=== PATIENT | male | born 1985 | race American Indian/Alaskan Native ===

== ENCOUNTER 2018-02-08 16:32 | Inpatient (IN) | payer SELFPAY ==
[2018-02-08] MEDS ORDERED: ZOFRAN IV ONE (17:36)
[2018-02-08] MEDS ORDERED: SUBLIMAZE IV ONE ×2 (17:36→19:21)
[2018-02-08] MEDS ORDERED: BOOSTRIX IM ONE (17:38)
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
[2018-02-08 18:52] LABS: Basophils # (Auto) 0.1 K/mm3 (0.0-0.1); Basophils % (Auto) 0.5 % (0.0-1.8); Eosinophils # (Auto) 0.1 K/mm3 (0.0-0.4); Eosinophils % (Auto) 1.3 % (0.0-4.3); Hematocrit 40.5 % (35.5-45.6); Lymphocytes # (Auto) 1.5 K/mm3 (1.2-5.4); Lymphocytes % (Auto) 13.6 % (13.4-35.0); Mean Corpuscular HGB Conc 32 % (32-34); Mean Corpuscular Hemoglobin 26 pg (28-32); Mean Corpuscular Volume 82 fl (84-94); Monocytes # (Auto) 0.7 K/mm3 (0.0-0.8); Monocytes % (Auto) 6.5 % (0.0-7.3); Platelet Count 282 K/mm3 (140-440); Red Blood Count 4.96 M/mm3 (3.65-5.03); Red Cell Distribution Width 15.1 % (13.2-15.2)
[2018-02-08 19:00] LABS: Creatine Kinase MB 2.2 ng/mL (0.0-4.0)
[2018-02-08 19:23] LABS: Alanine Aminotransferase 27 units/L (7-56); Albumin 4.1 g/dL (3.9-5); BUN/Creatinine Ratio 15; Blood Urea Nitrogen 12 mg/dL (9-20); Hemolysis Index 3
[2018-02-08] MEDS ORDERED: PERCOCET 5/325 PO ONE (20:40)
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
[2018-02-08 21:35] LABS: Creatine Kinase MB 2.9 ng/mL (0.0-4.0)
[2018-02-08] MEDS ORDERED: NACL 0.9% 500 ML IR ONE (21:50)
[2018-02-08] MEDS ORDERED: HYDROGEN PEROXIDE ONE (21:50)
[2018-02-08] MEDS ORDERED: XYLOCAINE 1% 20 mL ONE (21:50)
[2018-02-08] MEDS ORDERED: XYLOCAINE 1% 20 mL INFILTRATI ONE (22:17)
[2018-02-08] MEDS ORDERED: NACL 0.9% IR ONE (22:17)
[2018-02-08] MEDS ORDERED: HYDROGEN PEROXIDE TP ONE (22:17)
[2018-02-08] MEDS ORDERED: POLYSPORIN TP ONE (22:19)
[2018-02-08] MEDS ORDERED: TYLENOL PO PRN (22:25)
[2018-02-08] MEDS ORDERED: SODIUM CHLORIDE FLUSH SYRINGE 10 ML IV PRN (22:25)
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
[2018-02-08] MEDS: MOTRIN PO SCH (22:54)
[2018-02-08] MEDS ORDERED: MORPHINE ONE (23:16)
[2018-02-08] MEDS ORDERED: ZOFRAN ONE (23:16)
[2018-02-08] MEDS: MORPHINE IV PRN (23:20)
[2018-02-08] MEDS: ZOFRAN IV PRN (23:21)
[2018-02-08 23:28] LABS: Creatine Kinase MB 3.1 ng/mL (0.0-4.0)
[2018-02-09] MEDS: MOTRIN PO SCH ×2 (06:25→21:21)
[2018-02-09] MEDS: MORPHINE IV PRN ×3 (06:30→20:29)
[2018-02-09] MEDS: ZOFRAN IV PRN (06:30)
[2018-02-09 08:29] LABS: Basophils % (Auto) 0.3 % (0.0-1.8); Eosinophils % (Auto) 0.1 % (0.0-4.3); Hematocrit 40.1 % (35.5-45.6); Hemoglobin 12.7 gm/dl (11.8-15.2); Lymphocytes # (Auto) 0.9 K/mm3 (1.2-5.4); Lymphocytes % (Auto) 11.4 % (13.4-35.0); Mean Corpuscular HGB Conc 32 % (32-34); Mean Corpuscular Hemoglobin 26 pg (28-32); Mean Corpuscular Volume 82 fl (84-94); Monocytes # (Auto) 0.5 K/mm3 (0.0-0.8); Monocytes % (Auto) 6.2 % (0.0-7.3); Platelet Count 281 K/mm3 (140-440); Red Blood Count 4.86 M/mm3 (3.65-5.03); Red Cell Distribution Width 15.1 % (13.2-15.2)
[2018-02-09 08:35] LABS: BUN/Creatinine Ratio 17; Blood Urea Nitrogen 10 mg/dL (9-20); Calcium 8.8 mg/dL (8.4-10.2); Creatine Kinase MB 2.7 ng/mL (0.0-4.0); Hemolysis Index 11
[2018-02-09] MEDS ORDERED: MOTRIN PO SCH ×2 (08:36→22:00)
[2018-02-09] MEDS ORDERED: MOTRIN PO NR (08:45)
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
[2018-02-09] MEDS: SODIUM CHLORIDE FLUSH SYRINGE 10 ML IV SCH ×2 (09:30→21:22)
[2018-02-09] MEDS: LOVENOX SUB-Q SCH (09:30)
[2018-02-09] MEDS ORDERED: LOVENOX SUB-Q SCH (10:00)
--- NOTE | 2018-02-09 10:14 | XRay Report ---
AP CHEST: HISTORY: chest pain AP view of the chest demonstrates a normal mediastinal and cardiac contour with clear lungs and normal bony and soft tissue structures. IMPRESSION: Unremarkable AP chest.
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
[2018-02-10] MEDS: SODIUM CHLORIDE FLUSH SYRINGE 10 ML IV SCH (10:51)
[2018-02-10] MEDS: MOTRIN PO SCH (10:51)
[2018-02-10] MEDS: LOVENOX SUB-Q SCH (10:51)
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
[2018-02-10 12:56] VITALS: BP 123/77
== END 2018-02-10 15:45 | disposition home or self-care (01) | DRG 316 ==
LOC: ED 16:32 → 4A 22:21
PROVIDERS: ADMIT Internal Medicine; ATTEND Internal Medicine
PROC: 3E0234Z Introduction of Serum, Toxoid and Vaccine into Muscle, Percutaneous Approach (ICD-10-PCS; principal; 2018-02-08)
PROC: 0HQ0XZZ Repair Scalp Skin, External Approach (ICD-10-PCS; 2018-02-08)
DX: I31.9 Disease of pericardium, unspecified (principal); S16.1XXA Strain of muscle, fascia and tendon at neck level, initial encounter; R59.1 Generalized enlarged lymph nodes; S01.01XA Laceration without foreign body of scalp, initial encounter; K59.00 Constipation, unspecified; Z23 Encounter for immunization; Y93.89 Activity, other specified; Y92.89 Other specified places as the place of occurrence of the external cause; Y99.8 Other external cause status; Z82.49 Family history of ischemic heart disease and other diseases of the circulatory system; Z79.899 Other long term (current) drug therapy; V49.9XXA Car occupant (driver) (passenger) injured in unspecified traffic accident, initial encounter
CPT/HCPCS: 36415; 70450; 71045; 71275; 72125; 74177; 80048; 80053; 82550; 82553; 84484; 85025; 86850; 86900; 86901; 90715; 93005; 93010; 93306; 96374; 99285; J1650; J2270; J2405; J3010; Q9967

== ENCOUNTER 2018-02-19 14:07 | Emergency (ER) | payer BC ==
[2018-02-19 14:44] VITALS: BP 142/87
[2018-02-19] MEDS ORDERED: MOTRIN PO ONE (16:10)
[2018-02-19] MEDS ORDERED: TRIPLE ANTIBIOTIC TP ONE (16:10)
--- NOTE | 2018-02-19 16:16 | Emergency Department Report ---
Suture/Staple Removal - [facility] Chief Complaint: Laceration/Recheck/Suture Stated Complaint: REMOVE JAZMÍN Time Seen by Provider: 02/19/18 16:03 When Sutures or Jazmín Placed: 8-10 Days Ago Wound Location: 4 jazmín to top of head and left temporal region ED Review of Systems ROS: Stated complaint: REMOVE JAZMÍN Other details as noted in HPI Constitutional: denies: chills, fever Eyes: denies: eye pain, eye discharge, vision change ENT: as per HPI (jazmín placed on head 10 days ago). denies: ear pain, throat pain Respiratory: denies: cough, shortness of breath, wheezing Cardiovascular: denies: chest pain, palpitations Endocrine: no symptoms reported Gastrointestinal: denies: abdominal pain, nausea, diarrhea Genitourinary: denies: urgency, dysuria Musculoskeletal: denies: back pain, joint swelling, arthralgia Skin: denies: rash, lesions Neurological: denies: headache, weakness, paresthesias Psychiatric: denies: anxiety, depression Hematological/Lymphatic: denies: easy bleeding, easy bruising ED Past Medical Hx - Past Medical History Hx Congestive Heart Failure: No Hx Diabetes: No Hx Asthma: No Hx COPD: No Hx HIV: No - Social History Smoking Status: Never Smoker Substance Use Type: None - Medications Home Medications: Home Medications Medication Instructions Recorded Confirmed Last Taken Type Colchicine 0.6 mg PO DAILY #30 capsule 02/10/18 Unknown Rx Naproxen [Naprosyn TAB] 500 mg PO BID #14 tablet 02/10/18 Unknown Rx Bacitracin Zinc Oint [Antibiotic 1 applicatio TP BID #1 tube 02/19/18 Unknown Rx Oint] Ibuprofen [Motrin] 600 mg PO Q8H PRN #20 tablet 02/19/18 Unknown Rx Suture Removal Exam - Exam General: Vital signs noted. No distress. Alert and acting appropriately. Wound: No Pathologic Erythema (no signs of infection and wound dehiscence or erythema. No purulent drainage from the wound sites), No Tenderness, No Drainage, No Pus, No Wound Dehiscence Other Systems: All other systems reviewed and are unremarkable. ED Course Vital Signs 02/19/18 14:40 Temperature 98.3 F Pulse Rate 90 Respiratory 18 Rate Blood Pressure 142/87 O2 Sat by Pulse 97 Oximetry ED Recheck MDM - Differential Diagnosis Suture/Staple Removal - Medical Decision Making A/P: staple removal 1-no wound dehiscence or signs of infection 2-follow-up with primary care Critical care attestation.: If time is entered above; I have spent that time in minutes in the direct care of this critically ill patient, excluding procedure time. ED Disposition Clinical Impression: Encounter for staple removal Disposition: - TO HOME OR SELFCARE Is pt being admited?: No Does the pt Need Aspirin: No Condition: Stable Instructions: Suture Removal (ED) Prescriptions: Bacitracin Zinc Oint [Antibiotic Oint] 1 applicatio TP BID #1 tube Ibuprofen [Motrin] 600 mg PO Q8H PRN #20 tablet PRN Reason: Pain Referrals: [facility] [Provider Group] - 3-5 Days Time of Disposition: 16:12
== END 2018-02-19 16:21 | disposition home or self-care (01) ==
LOC: ED 14:07
DX: Z48.01 Encounter for change or removal of surgical wound dressing (principal)
CPT/HCPCS: A6250

== ENCOUNTER 2018-03-16 08:13 | Day surgery (SDC) | payer BC ==
[2018-03-16 09:20] LABS: Hematocrit 39.9 % (35.5-45.6); Hemoglobin 13.1 gm/dl (11.8-15.2); Mean Corpuscular HGB Conc 33 % (32-34); Mean Corpuscular Hemoglobin 26 pg (28-32); Mean Corpuscular Volume 81 fl (84-94); Platelet Count 377 K/mm3 (140-440); Red Blood Count 4.96 M/mm3 (3.65-5.03); Red Cell Distribution Width 14.7 % (13.2-15.2)
[2018-03-16 09:21] LABS: Basophils % (Auto) 0.7 % (0.0-1.8); Eosinophils # (Auto) 0.2 K/mm3 (0.0-0.4); Eosinophils % (Auto) 3.6 % (0.0-4.3); Lymphocytes # (Auto) 1.3 K/mm3 (1.2-5.4); Lymphocytes % (Auto) 21.7 % (13.4-35.0); Monocytes # (Auto) 0.5 K/mm3 (0.0-0.8); Monocytes % (Auto) 9.3 % (0.0-7.3)
[2018-03-16 09:43] LABS: INR 0.94 (0.87-1.13)
[2018-03-16 09:44] LABS: Partial Thromboplastin Time 35.2 Sec. (24.2-36.6)
[2018-03-16] MEDS ORDERED: VERSED IV ONE (10:13)
[2018-03-16] MEDS ORDERED: SUBLIMAZE IV ONE (10:13)
[2018-03-16] MEDS ORDERED: SUBLIMAZE ONE (10:15)
[2018-03-16] MEDS ORDERED: NORCO 5/325 PO ONE (11:32)
--- NOTE | 2018-03-16 12:53 | Cat Scan Report ---
Exam: CT-guided biopsy of lymph node Clinical indication: Patient with enlarged periaortic and pericaval lymph nodes Date: 03/16/2018 Procedure: Following an explanation of the risks, benefits and alternatives; written informed consent was obtained. The patient was brought to the CT suite and placed in prone position on the examination table. An initial sand polisher images of the abdomen were performed an appropriate access site was chosen on the right lower back. The patient's right lower back was prepped and draped in the usual sterile fashion. Using intermittent CT guidance, an 11 cm 20-gauge trocar needle was advanced to the margin of the most lateral lymph node. A total of 4 core biopsies were then obtained and handed off the pathologist in attendance. There is positive identification of lymphoid tissue. At that point, the trocar needle was removed and hemostasis achieved using manual compression. A sterile dressing was applied. The patient tolerated the procedure well. There were no immediate post procedure complications. Conscious sedation was performed under the guidance of radiologic nursing. Continuous cardiopulmonary monitoring was utilized. Impression: CT-guided biopsy of lymph node with 4 core samples obtained and handed off the pathologist in attendance. Lymphoid tissue was identified at the time of examination.
[2018-03-16 14:27] VITALS: BP 115/71
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
== END 2018-03-16 14:09 | disposition home or self-care (01) ==
LOC: CATHLABREC 08:13 → EDSTATUS 08:30 → CATHLABREC 14:09
PROVIDERS: ATTEND Radiology Diagnostic Radiology
DX: L04.1 Acute lymphadenitis of trunk (principal); Z79.01 Long term (current) use of anticoagulants
CPT/HCPCS: 36415; 38505; 77012; 85025; 85610; 85730; 88305; 88333; 88334; 88342; J2250; J3010; 88173